=== PATIENT | male | born 1955 | race Caucasian/White ===

== ENCOUNTER 2020-04-07 10:49 | Emergency (ER) | payer BC, OTHER ==
[2020-04-07] MEDS ORDERED: Ondansetron ODT 4 MG TAB ONE (11:55)
[2020-04-09 11:59] LABS: SARS-CoV-2 MS2 Positive; SARS-CoV-2 N Gene Positive; SARS-CoV-2 S Gene Positive; SARS-CoV-2 by NAA DETECTED (NotDetected); SARS-CoV-2 orf1ab Positive
== END 2020-04-07 12:00 | disposition home or self-care (01) ==
LOC: MADERS 10:49
DX: U07.1 COVID-19 (principal); R04.0 Epistaxis; J44.9 Chronic obstructive pulmonary disease, unspecified; Z79.899 Other long term (current) drug therapy; Z79.82 Long term (current) use of aspirin
CPT/HCPCS: 87635; 99284; Q0162; U0003

== ENCOUNTER 2020-04-21 15:51 | Emergency (ER) | payer BC, OTHER ==
[2020-04-21] MEDS ORDERED: Azithromycin 250 MG TAB ONE (18:11)
--- NOTE | 2020-04-21 18:25 | RAD ---
FRONTAL RADIOGRAPH CHEST PORTABLE UPRIGHT: Date: 04-21-2020 Comparison: None History: Cough FINDINGS: No pneumothorax, pleural fluid, focal consolidation or alveolar edema. Heart and mediastinal contours are unremarkable. IMPRESSION: No acute findings. POS: OFF
== END 2020-04-21 18:20 | disposition home or self-care (01) ==
LOC: MADERS 15:51
DX: U07.1 COVID-19 (principal); J44.1 Chronic obstructive pulmonary disease with (acute) exacerbation; Z79.51 Long term (current) use of inhaled steroids; Z79.82 Long term (current) use of aspirin
CPT/HCPCS: 71045